=== PATIENT | male | born 1980 | race Caucasian/White ===

== ENCOUNTER 2018-12-13 16:33 | Emergency (ER) | payer OTHER, SELFPAY ==
--- NOTE | 2018-12-13 17:45 | RAD REPORT ---
EXAM DESCRIPTION: Xavier Schmidt (2 Views)12/13/2018 5:36 pm CLINICAL HISTORY: Cough COMPARISON: None FINDINGS: The lungs appear clear of acute infiltrate. The heart is normal size IMPRESSION: No acute abnormalities displayed
[2018-12-13] MEDS ORDERED: MORPHINE 4 MG/ML SYR ONE (18:21)
[2018-12-13] MEDS ORDERED: KETOROLAC 30 MG/ML INJ ONE (18:22)
[2018-12-13] MEDS ORDERED: ONDANSETRON 4 MG (ODT) TAB ONE (18:22)
--- NOTE | 2018-12-13 19:12 | RAD REPORT ---
EXAM DESCRIPTION: CT - Thorax Wo Con - 12/13/2018 6:53 pm CLINICAL HISTORY: Chest pain COMPARISON: Chest x-ray December 13, 2018 TECHNIQUE: Computed axial tomography of the chest was obtained. Contrast was not requested. All CT scans are performed using dose optimization technique as appropriate and may include automated exposure control or mA/KV adjustment according to patient size. FINDINGS: The evaluation of mediastinum, anam and vessels is limited secondary to lack of IV contras t administration. Nondisplaced fracture left fifth anterolateral rib Mild lingular opacity. . No pneumothorax No mediastinal hematoma A pleural effusion is not present. No pericardial effusion Gallstone 43 millimeter right thyroid substernal nodule is only partially included in the field of view IMPRESSION: Nondisplaced fracture left fifth anterolateral rib Mild lingular opacity may represent a contusion or inflammation 43 millimeter right thyroid substernal nodule. Nonemergent thyroid ultrasound recommended
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
[2018-12-13 21:53] VITALS: TEMP 98.2; O2SAT 99
[2018-12-13 21:56] VITALS: BP 120/82
== END 2018-12-13 19:51 | disposition home or self-care (01) ==
LOC: ER 16:33
DX: S22.32XA Fracture of one rib, left side, initial encounter for closed fracture (principal); W03.XXXA Other fall on same level due to collision with another person, initial encounter; Y93.89 Activity, other specified; Y92.832 Beach as the place of occurrence of the external cause; Z72.0 Tobacco use
CPT/HCPCS: 71046; 71250; 96372; 99284

== ENCOUNTER 2018-12-16 08:52 | Emergency (ER) | payer SELFPAY ==
--- OUTSIDE RECORDS SUMMARY | 2018-12-16 08:55 | XMS REPORT ---
:1980 [facility] Address [address] [place] [address] [address] [place] [address] Care Team Providers Name Role Phone Unavailable Unavailable Unavailable Payers Payer Name Policy Type Policy Number Effective Date Expiration Date Problems This patient has no known problems. Allergies, Adverse Reactions, Alerts Allergy Allergy Status Severity Reaction(s) Onset Inactive Treating Comments Name Type Date Date Clinician No Known DA Active U 2018-06 Allergies - 00:00:0 0 No Known DA Active U 2013-07 Allergies - 00:00:0 0 Medications This patient has no known medications. Results Test Description Test Time Test Comments Text Results Atomic Results Result Comments - [facility] 2018-07-21 19:52:00 Name: SANJUANA WELDON [facility] : 1980 Age/S: 38 / M [address] [place] [address] Unit #: [id number] Loc: [place] [address] Phys: Gaurav Blankenship MD Acct: [id number] Dis Date: Status: PRE ER PHONE #: [phone] Exam Date: 07/21/20181943 FAX #: [phone] Reason: Mass on right wrist EXAMS: CPT CODE: [id number] [facility] [id number] NONVASCULAR ULTRASOUND RIGHT UPPER EXTREMITY WITH ATTENTION TO THE WRIST. INDICATION: Lump lateral aspect of the right wrist for several years. Now the patient is experiencing intermittent numbness of the hand and wrist. COMPARISON: None. FINDINGS: There is a 2.2 x 1.2 x 1.7 cm rounded sharply defined cyst with internal debris at the site of the palpable lump radial side of the wrist. No internal vascularity on Doppler ultrasound images. This is in close proximity to the radial artery and appears separate from it. IMPRESSION: Cyst with internal debris lateral aspect of the wrist as above. END OF IMPRESSION WR1-H at 1951 Reported and signed by: Mariano Ramos M.D. CC: Gaurav Blankenship MD Technologist: Tamara Rondon RDMS(AB)(OB) Trnsdb Date/Time: 07/21/2018 (1951) KaleighRTB Orig Print D/T: S: 07/21/2018 (1955) Probe: PAGE 1 Signed Report
--- OUTSIDE RECORDS SUMMARY | 2018-12-16 08:55 | XMS REPORT | Summary of Care ---
:1980 Author Organization [facility] Address [address] [place] [id number] Care Team Providers Name Role Phone Pcp, Patient Does Not Have A Primary Care Provider Reason for Referral MRI/CAT Scan (STAT) Status Reason Specialty Diagnoses / Referred By Referred To Procedures Contact Contact New Request Diagnostic Diagnoses Vertigo Yeison Caputo, Radiology Procedures CT Head W/O Contrast [address] [id number] MRI/CAT Scan (STAT) Status Reason Specialty Diagnoses / Referred By Referred To Procedures Contact Contact New Request Diagnostic Diagnoses Vertigo Yeison Caputo, Radiology Procedures CT Head W/O Contrast [address] [address] Reason for Visit Reason Comments Weakness Dizziness Auth/Cert Status Reason Specialty Diagnoses / Referred By Referred To Procedures Contact Contact Emergency Medicine [facility] Emergency Dept [address] [place] [address] Encounter Details Date Type Department Care Team Description 10/27/2018 Emergency [facility]Emergency Yeison Caputo MD Chest pain, unspecified type (Primary Dx); Department [address] [place] [address] [place] [address] [place] [address] [place] [address] [phone] Allergies Active Allergy Reactions Severity Noted Date Comments Azithromycin Nausea and/or Vomiting 10/09/2016 documented as of this encounter (statuses as of 10/27/2018) Medications Medication Sig Dispensed Refills Start Date End Date Status bupropion HCl Take by 0 Active (WELLBUTRIN ORAL) mouth. escitalopram Take by 0 Active oxalate (LEXAPRO mouth. ORAL) meclizine 25 mg Take 1 tablet 15 tablet 0 10/27/2018 Active tabletIndications: by mouth Vertigo every 6 (six) hours as needed for Dizziness. meclizine 25 mg Take 1 tablet 20 tablet 0 08/27/2018 10/27/2018 Discontinued tabletIndications: by mouth Vertigo every 6 (six) hours. meclizine 25 mg Take 1 tablet 15 tablet 0 10/27/2018 10/27/2018 Discontinued tabletIndications: by mouth Vertigo every 6 (six) hours as needed for Dizziness. meclizine 25 mg Take 1 tablet 15 tablet 0 10/27/2018 10/27/2018 Discontinued tabletIndications: by mouth Vertigo every 6 (six) hours as needed for Dizziness. documented as of this encounter (statuses as of 10/27/2018) Active Problems No known active problemsdocumented as of this encounter (statuses as of 2018) Social History Tobacco Use Types Packs/Day Years Used Date Never Assessed Sex Assigned at Date Recorded Not on file Job Start Date Occupation Industry Not on file Not on file Not on file Travel History Travel Start Travel End No recent travel history available. documented as of this encounter Last Filed Vital Signs Vital Sign Reading Time Taken Comments Blood Pressure 112/54 10/27/2018 8:10 PM CDT Pulse 61 10/27/2018 8:10 PM CDT Temperature 36.8 C (98.2 F) 10/27/2018 7:09 PM CDT Respiratory Rate 15 10/27/2018 8:10 PM CDT Oxygen Saturation 95% 10/27/2018 8:10 PM CDT Inhaled Oxygen Concentration - - Weight 154.2 kg (340 lb) 10/27/2018 5:31 PM CDT Height 188 cm (6' 2") 10/27/2018 5:31 PM CDT Body Mass Index 43.65 10/27/2018 5:31 PM CDT documented in this encounter Discharge Instructions AttachmentsThe following attachments cannot be sent through Care Everywhere.Vertigo, Unspecified (Divehi)Chest Pain, Noncardiac (Divehi) documented in this encounter Plan of Treatment Health Maintenance Due Date Last Done Comments VARICELLA VACCINES (1 of 2 - 13+ 1995 2-dose series) DTaP,Tdap,and Td Vaccines (1 - 2001 Tdap) INFLUENZA VACCINE 11/30/2018 PNEUMOCOCCAL 0-64 YEARS COMBINED Aged Out No longer eligible based on SERIES patient's age to complete this topic documented as of this encounter Procedures Procedure Name Priority Date/Time Associated Diagnosis Comments CT HEAD WO CONTRAST STAT 10/27/2018 6:08 Vertigo Results for this PM CDT procedure are in the results section. CBC WITH DIFFERENTIAL STAT 10/27/2018 5:32 Chest pain, Results for this PM CDT unspecified type procedure are in the results section. EXTRA TUBE LT. BLUE STAT 10/27/2018 5:32 PM CDT CBC WITH DIFF Routine 10/27/2018 5:32 Chest pain, Results for this PM CDT unspecified type procedure are in the results section. BASIC METABOLIC PANEL STAT 10/27/2018 5:32 Chest pain, Results for this (NA, K, CL, CO2, PM CDT unspecified type procedure are in GLUCOSE, BUN, the results CREATININE, CA) section. TROPONIN I STAT 10/27/2018 5:32 Chest pain, Results for this PM CDT unspecified type procedure are in the results section. EKG-12 LEAD STAT 10/27/2018 5:31 PM CDT documented in this encounter Results CT Head W/O Contrast (10/27/2018 6:08 PM CDT) Specimen Impressions Performed At Impression: PACS/VR/DOSE No acute intracranial abnormalities. RL: [address] scan was performed according to the ALARA (as low as reasonably achievable) principal. Narrative Performed At CT of the brain without IV contrast PACS/VR/DOSE Technique: Axial scanning of the brain was performed without IV contrast. Indication: Dizziness Comparison: None Ordering clinician: YEISON CAPUTO Discussion: There is no intracranial hemorrhage, extra-axial fluid collections, midline shift or hydrocephalus. There is no loss of the jarvis-white matter differentiation. No mass lesion is identified. The parenchymal volume is within normal limits for the patient's age. Procedure Note [facility], Radiant Results Inft User - 10/27/2018 6:[address] of the brain without IV contrast Technique: Axial scanning of the brain was performed without IV contrast. Indication: Dizziness Comparison: None Ordering clinician: YEISON CAPUTO Discussion: There is no intracranial hemorrhage, extra-axial fluid collections, midline shift or hydrocephalus. There is no loss of the jarvis-white matter differentiation. No mass lesion is identified. The parenchymal volume is within normal limits for the patient's age. IMPRESSION Impression: No acute intracranial abnormalities. RL: [address] scan was performed according to the ALARA (as low as reasonably achievable) principal. Performing Organization Address City/State/Zipcode Phone Number PACS/VR/DOSE EXTRA TUBE LT. BLUE (10/27/2018 5:32 PM CDT) Specimen Blood Performing Organization Address City/State/Zipcode Phone Number [facility] CLIA: [id number], [address] [place] [address] [facility] [address] CBC WITH DIFFERENTIAL (10/27/2018 5:32 PM CDT) WBC 10.78 (H) 4.20 - 10.70 [facility] 10*3/L [facility] RBC 5.08 4.26 - 5.52 [facility] 10*6/L [facility] HGB 15.4 12.2 - 16.4 [facility] g/dL [facility] HCT 45.4 38.4 - 49.3 % [facility] MCV 89.4 81.7 - 95.6 fL [facility] MCH 30.3 26.1 - 32.7 pg [facility] MCHC 33.9 31.2 - 35.0 [facility] g/dL [facility] RDW-SD 41.8 38.5 - 51.6 fL [facility] RDW-CV 12.8 12.1 - 15.4 % [facility] PLT 290 150 - 328 [facility] 10*3/L [facility] MPV 9.5 (L) 9.8 - 13.0 fL [facility] NRBC/100 WBC 0.0 0.0 - 10.0 /100 [facility] WBCs [facility] NRBC x10^3 <0.01 10*3/L [facility] GRAN MAT (NEUT) % 64.0 % [facility] IMM GRAN % 0.80 % [facility] LYMPH % 24.8 % [facility] MONO % 7.8 % [facility] EOS % 2.1 % [facility] BASO % 0.5 % [facility] GRAN MAT x10^3(ANC) 6.90 1.99 - 6.95 [facility] 10*3/uL [facility] IMM GRAN x10^3 0.09 (H) 0.00 - 0.06 [facility] 10*3/uL [facility] LYMPH x10^3 2.67 1.09 - 3.23 [facility] 10*3/uL [facility] MONO x10^3 0.84 0.36 - 1.02 [facility] 10*3/uL [facility] EOS x10^3 0.23 0.06 - 0.53 [facility] 10*3/uL [facility] BASO x10^3 0.05 0.01 - 0.09 [facility] 10*3/uL [facility] Specimen Blood - ARM, LEFT Performing Organization Address City/State/Zipcode Phone Number [facility] CLIA: [id number], [address] [place], [place] [id number] [facility] [address] Troponin I (10/27/2018 5:32 PM CDT) TROPONIN I 0.000 <=0.034 ng/mL [facility] Specimen Blood - ARM, LEFT Narrative Performed At Equal or Less than 0.034 ng/ml---Normal [facility] Note: Cardiac troponin begins to rise 3-4 CAMPUS hours after the onset of ischemia. Repeat in 4-6 hours if the sample was drawn within 3-4 hours of the onset of the symptom and found normal. Between 0.035 and 0.120 ng/mL--- Borderline. Questionable myocardial injury or necrosis Note: Serial measurement may be necessary to confirm or exclude the diagnosis of myocardial injury or necrosis; Clinical correlation (symptoms, EKGs, imaging studies, and others) required; Repeat in 4-6 hours if clinically indicated. Equal or Higher than 0.121 ng/mL---Abnormal. Myocardial Injury or Necrosis Likely Biotin has been reported to cause a negative bias, interpret results relative to patient's use of biotin. Performing Organization Address City/State/Zipcode Phone Number [facility] CLIA: [id number], [address] [place] [address] [facility] [address] Basic Metabolic Panel (NA, K, CL, CO2, GLUCOSE, BUN, CREATININE, CA) (2018 5:32 PM CDT) NA 140 135 - 145 mmol/L [facility] K 4.2 3.5 - 5.0 mmol/L [facility] CL 104 98 - 108 mmol/L [facility] CO2 TOTAL 29 23 - 31 mmol/L [facility] AGAP 7 2 - 16 [facility] BUN 7 7 - 23 mg/dL [facility] GLUCOSE 107 70 - 110 mg/dL [facility] CREATININE 0.66 0.60 - 1.25 [facility] mg/dL [facility] CALCIUM 9.2 8.6 - 10.6 mg/dL [facility] eGFR Calculation 136.6 mL/min/1.73m2 [facility] (Non-) [facility] eGFR Calculation 165.5 mL/min/1.73m2 [facility] () [facility] Specimen Blood - ARM, LEFT Narrative Performed At Association of Glomerular Filtration Rate [facility] (GFR) and Staging of Kidney Disease* [place] + + --+ + | GFR (mL/min/1.73 m2)| With Kidney Damage|Without Kidney Damage + + --+ + |>90 |Stage one| Normal + + --+ + |60-89| Stage two| Decreased GFR + + --+ + |30-59| Stage three| Stage three + + --+ + |15-29| Stage four | Stage four + + --+ + |<15 (or dialysis)|Stage five | Stage five + + --+ + *Each stage assumes the associated GFR level has been in effect for at least three months.Stages 1 to 5, with or without kidney disease, indicate chronic kidney disease. Notes: Determination of stages one and two (with eGFR >59mL/min/1.73 m2) requires estimation of kidney damage for at least three months as defined by structural or functional abnormalities of the kidney, manifested by either: Pathological abnormalities or Markers of kidney damage (including abnormalities in the composition of the blood or urine or abnormalities in imaging tests). Performing Organization Address City/State/Zipcode Phone Number [facility] CLIA: [id number], [address] [place] [address] [facility] documented in this encounter Visit Diagnoses Diagnosis Chest pain, unspecified type - Primary Vertigo Dizziness and giddiness documented in this encounter
[2018-12-16] MEDS ORDERED: KETOROLAC 30 MG/ML INJ ONE (09:28)
--- NOTE | 2018-12-16 10:53 | ER ---
Nurse's Notes [facility] Name: Steven Nguyen Age: 38 yrs Sex: Male : 1980 Arrival Date: 12/16/2018 Time: 08:54 Bed 17 [facility] MD: Unknown, Unknown Diagnosis: Intercostal pain Presentation: 12/16 09:05 Presenting complaint: Seen in ED last weekend for broken rib, feels like pain is hb getting worse and having difficulty breathing. Transition of care: patient was not received from another setting of care. Onset of symptoms was December 16, 2018. Risk Assessment: Do you want to hurt yourself or someone else? Patient reports no desire to harm self or others. Initial Sepsis Screen: Does the patient meet any 2 criteria? No. Patient's initial sepsis screen is negative. Does the patient have a suspected source of infection? No. Patient's initial sepsis screen is negative. Care prior to arrival: None. 09:05 Method Of Arrival: Ambulatory hb 09:05 Acuity: JANNA 3 hb Triage Assessment: 09:07 General: Appears in no apparent distress. comfortable, obese, Behavior is cooperative, bp appropriate for age, anxious. Pain: Complains of pain in chest. EENT: No deficits noted. Neuro: No deficits noted. Cardiovascular: No deficits noted. Respiratory: No deficits noted. GI: No signs and/or symptoms were reported involving the gastrointestinal system. : No signs and/or symptoms were reported regarding the genitourinary system. Derm: No deficits noted. Musculoskeletal: No deficits noted. Historical: - Allergies: 09:08 Erythromycin; hb - PMHx: 09:08 Asthma; hb - PSHx: 09:08 Hernia repair; hb - Immunization history:: Adult Immunizations up to date. - Social history:: Smoking status: Patient uses tobacco products, smokes one-half pack cigarettes per day. - Ebola Screening: : No symptoms or risks identified at this time. Screenin:34 Abuse screen: Denies threats or abuse. Denies injuries from another. Nutritional bp screening: No deficits noted. Tuberculosis screening: No symptoms or risk factors identified. Fall Risk None identified. Assessment: 09:33 General: SEE TRIAGE NOTE. bp 11:23 Reassessment: PT D/C HOME AMBULATORY WITH FAMILY, DX WITH COSTOCHONDRITIS. VS STABLE. bp Vital Signs: 09:06 BP 129 / 64; Pulse 62; Resp 16; Temp 98.2; Pulse Ox 97% on R/A; Weight 154.22 kg; hb Height 6 ft. 2 in. (187.96 cm); Pain 10/10; 09:06 Body Mass Index 43.65 (154.22 kg, 187.96 cm) hb ED Course: 08:54 Patient arrived in ED. ag5 08:56 Unknown, Unknown is Private Physician. ag5 09:06 Triage completed. hb 09:06 Arm band placed on. hb 09:14 Che Shelley FNP-C is [facility]. snw 09:14 Sean Bhatia MD is Attending Physician. snw 09:15 Ozzy Ramires MD is Attending Physician. snw 09:32 Damon Don, RN is Primary Nurse. bp 09:34 Patient has correct armband on for positive identification. Bed in low position. Call bp light in reach. Side rails up X2. Adult w/ patient. 10:47 Chest Pa And Lat (2 Views) XRAY In Process Unspecified. EDMS 11:24 No provider procedures requiring assistance completed. Patient did not have IV access bp during this emergency room visit. Administered Medications: 09:30 Drug: TORadol 30 mg Route: IM; Site: right deltoid; bp 11:23 Follow up: Response: Pain is decreased bp Outcome: 10:52 Discharge ordered by . snw 11:25 Condition: stable bp 11:25 Instructed on the need for admit. 11:26 Discharged to home ambulatory, with family. bp 11:27 Patient left the ED. bp Signatures: Dispatcher [employer] EDMS Che Shelley FNP-C MEDICAL PRACTICE ASSISTANT-Csnw Renetta Connor, RN RN Damon Toure, RN RN Bruce Richards ag5
--- NOTE | 2018-12-16 10:54 | EDPHYS ---
Physician Documentation [facility] Name: Steven Nguyen Age: 38 yrs Sex: Male : 1980 Arrival Date: 12/16/2018 Time: 08:54 Bed 17 Private MD: Unknown, Unknown ED Physician Ozzy Ramires HPI: 12/16 09:39 This 38 yrs old Male presents to ER via Ambulatory with complaints of Rib snw Pain. 09:39 Onset: The symptoms/episode began/occurred suddenly, 1 week(s) ago, and became worse snw yesterday, and became persistent. Associated signs and symptoms: Pertinent positives: The patient does not have any pertinent positive signs or symptoms associated with pediatric illness. The patient has not experienced similar symptoms in the past. The patient has been recently seen by a physician: 1 week(s) ago, with similar presenting complaints, and apparently given a diagnosis of rib fracture. Historical: - Allergies: 09:08 Erythromycin; hb - PMHx: 09:08 Asthma; hb - PSHx: 09:08 Hernia repair; hb - Immunization history:: Adult Immunizations up to date. - Social history:: Smoking status: Patient uses tobacco products, smokes one-half pack cigarettes per day. - Ebola Screening: : No symptoms or risks identified at this time. ROS: 09:31 Constitutional: Negative for fever, chills, and weight loss, Eyes: Negative for injury, snw pain, redness, and discharge, ENT: Negative for injury, pain, and discharge, Neck: Negative for injury, pain, and swelling, Cardiovascular: Negative for chest pain, palpitations, and edema, Abdomen/GI: Negative for abdominal pain, nausea, vomiting, diarrhea, and constipation, Back: Negative for injury and pain, : Negative for injury, bleeding, discharge, and swelling, MS/Extremity: Negative for injury and deformity, Skin: Negative for injury, rash, and discoloration, Neuro: Negative for headache, weakness, numbness, tingling, and seizure, Psych: Negative for depression, anxiety, suicide ideation, homicidal ideation, and hallucinations. 09:31 Respiratory: Positive for pleurisy, of the left lateral chest wall. Exam: 09:29 Constitutional: This is a well developed, obese patient who is awake, alert, and in no snw acute distress. Head/Face: Normocephalic, atraumatic. Eyes: Pupils equal round and reactive to light, extra-ocular motions intact. Lids and lashes normal. Conjunctiva and sclera are non-icteric and not injected. Cornea within normal limits. Periorbital areas with no swelling, redness, or edema. ENT: Nares patent. No nasal discharge, no septal abnormalities noted. Tympanic membranes are normal and external auditory canals are clear. Oropharynx with no redness, swelling, or masses, exudates, or evidence of obstruction, uvula midline. Mucous membranes moist. Neck: Trachea midline, no thyromegaly or masses palpated, and no cervical lymphadenopathy. Supple, full range of motion without nuchal rigidity, or vertebral point tenderness. No Meningismus. Chest/axilla: Normal chest wall appearance and motion. Nontender with no deformity. No lesions are appreciated. Cardiovascular: Regular rate and rhythm with a normal S1 and S2. No gallops, murmurs, or rubs. Normal PMI, no JVD. No pulse deficits. Abdomen/GI: Soft, non-tender, with normal bowel sounds. No distension or tympany. No guarding or rebound. No evidence of tenderness throughout. Back: No spinal tenderness. No costovertebral tenderness. Full range of motion. Skin: Warm, dry with normal turgor. Normal color with no rashes, no lesions, and no evidence of cellulitis. MS/ Extremity: Pulses equal, no cyanosis. Neurovascular intact. Full, normal range of motion. Neuro: Awake and alert, GCS 15, oriented to person, place, time, and situation. Cranial nerves II-XII grossly intact. Motor strength 5/5 in all extremities. Sensory grossly intact. Cerebellar exam normal. Normal gait. Psych: Awake, alert, with orientation to person, place and time. Behavior, mood, and affect are within normal limits. 09:29 Respiratory: the patient does not display signs of respiratory distress, Respirations: shallow respirations, splinting, that is moderate, tenderness to left lateral chest wall, Breath sounds: are clear throughout. Vital Signs: 09:06 BP 129 / 64; Pulse 62; Resp 16; Temp 98.2; Pulse Ox 97% on R/A; Weight 154.22 kg; hb Height 6 ft. 2 in. (187.96 cm); Pain 10/10; 09:06 Body Mass Index 43.65 (154.22 kg, 187.96 cm) hb MDM: 09:20 Patient medically screened. snw 10:53 Data reviewed: vital signs, nurses notes. Data interpreted: Pulse oximetry: on room air snw is 97 %. Interpretation: normal. Counseling: I had a detailed discussion with the patient and/or guardian regarding: the historical points, exam findings, and any diagnostic results supporting the discharge/admit diagnosis, radiology results, the need for outpatient follow up, to return to the emergency department if symptoms worsen or persist or if there are any questions or concerns that arise at home. Special discussion: Based on the history and exam findings, there is no indication for further emergent testing or inpatient evaluation. I discussed with the patient/guardian the need to see the primary care provider for further evaluation of the symptoms. 12/16 09:23 Order name: Chest Pa And Lat (2 Views) XRAY snw Administered Medications: 09:30 Drug: TORadol 30 mg Route: IM; Site: right deltoid; bp 11:23 Follow up: Response: Pain is decreased bp Disposition: 16:41 Co-signature as Attending Physician, Ozzy Ramires MD I agree with the assessment and vinayak plan of care. Disposition: 12/16/18 10:52 Discharged to Home. Impression: Intercostal pain. - Condition is Stable. - Discharge Instructions: Chest Wall Pain, Costochondritis. - Prescriptions for Diclofenac Sodium 75 mg Oral Tablet Sustained Release - take 1 tablet by ORAL route 2 times per day; 30 tablet. Albuterol Sulfate 90 mcg/actuation - inhale 1-2 puff by INHALATION route every 4-6 hours; 1 Inhaler. - Work release form, Medication Reconciliation Form, Thank You Letter, Antibiotic Education, Prescription Opioid Use form. - Follow up: Emergency Department; When: As needed; Reason: Trouble breathing, Worsening of condition. Follow up: Private Physician; When: 2 - 3 days; Reason: Recheck today's complaints, Continuance of care, Re-evaluation by your physician. Signatures: Dispatcher [employer] Ozzy Ayon MD MD cha Therrien, Shelly, [employer] END FINDER-C [employer] END FINDER-Csnw Renetta Connor, RN RN Damon Toure RN RN bp Corrections: (The following items were deleted from the chart) 11:27 10:52 12/16/2018 10:52 Discharged to Home. Impression: Intercostal pain. Condition is bp Stable. Forms are Medication Reconciliation Form, Thank You Letter, Antibiotic Education, Prescription Opioid Use. Follow up: Emergency Department; When: As needed; Reason: Trouble breathing, Worsening of condition. Follow up: Private Physician; When: 2 - 3 days; Reason: Recheck today's complaints, Continuance of care, Re-evaluation by your physician. snw
--- NOTE | 2018-12-16 11:25 | RAD REPORT ---
EXAM DESCRIPTION: RAD - Chest Pa And Lat (2 Views) - 12/16/2018 10:46 am CLINICAL HISTORY: CHEST PAIN Chest pain. COMPARISON: Chest Pa And Lat (2 Views) dated 12/13/2018; Thorax Wo Con dated 12/13/2018 FINDINGS: The lungs are clear. Expiration view shows no evidence of a measurable pneumothorax. The h eart is normal in size. The patient's known left rib fracture not well seen by plain radiograph. IMPRESSION: No acute abnormality detected.
[2018-12-16 12:30] VITALS: BP 129/64; TEMP 98.2; O2SAT 97
== END 2018-12-16 11:27 | disposition home or self-care (01) ==
LOC: ER 08:52
DX: R07.82 Intercostal pain (principal); F17.210 Nicotine dependence, cigarettes, uncomplicated; Z88.3 Allergy status to other anti-infective agents
CPT/HCPCS: 71046; 96372; 99283

== ENCOUNTER 2024-01-31 21:29 | Emergency (ER) | payer OTHER ==
[2024-01-31] MEDS ORDERED: ONDANSETRON 4 MG/2 ML VIAL ONE (21:46)
[2024-01-31] MEDS ORDERED: dexAMETHasone 10 MG/ML VIAL ONE (21:46)
[2024-01-31] MEDS ORDERED: KETOROLAC 30 MG/ML INJ ONE (21:47)
[2024-01-31] MEDS ORDERED: FENTANYL CITR 100 MCG/2 ML ONE (21:47)
[2024-01-31] MEDS ORDERED: NA CHLORIDE 0.9% 1,000 ML ONE (21:49)
[2024-01-31] MEDS ORDERED: DIAZEPAM 5 MG TABLET ONE (21:49)
[2024-01-31 22:42] LABS: Anion Gap 6.5 mEq/L (5.0-15.0); Potassium 3.5 mEq/L (3.5-5.1)
[2024-01-31 22:43] LABS: Absolute Basophils 0.1 K/uL (0-0.5); Absolute Eosinophils 0.3 K/uL (0-0.5); Absolute Lymphocytes (CBC) 3.3 K/uL (0.7-4.9); Absolute Monocytes 1.1 K/uL (0.1-1.3); Absolute Neutrophil 6.7 K/uL (1.8-8.0); Basophils % 0.6 % (0-1.3); Eosinophils % 2.6 % (0-4.4); Hematocrit 41.6 % (39.6-49.0); Hemoglobin 14.4 g/dL (13.6-17.9); Lymphocytes % 28.7 % (15.3-44.8); MCH 30.6 pg (27.0-35.0); MCHC 34.6 g/dL (32.0-36.0); MCV 88.5 fL (80-100); MPV 8.1 fL (7.6-11.3); Monocytes % 9.4 % (3.3-12.3); Neutrophils % 58.7 % (41.7-73.7); Nucleated Red Blood Cells % 0.1 % (0-0); Platelets 281 thou/uL (152-406); Red Cell Distribution Width 13.5 % (12.1-15.2)
--- NOTE | 2024-01-31 23:11 | RAD REPORT ---
EXAMINATION: CT HEAD WITHOUT CONTRAST CT CERVICAL SPINE WITHOUT CONTRAST CLINICAL INDICATION: Male, 43 years old. Pain;Trauma TECHNIQUE: Axial CT images from the skull base to the vertex without intravenous contrast. Axial CT i mages through the cervical spine were obtained without intravenous contrast. Sagittal and coronal reformatted images were created from the data set. Coronal and sagittal reformatted images were creat ed from the data set. One or more of the following dose reduction techniques were used: Automated exposure control, adjustment of the mA and/or kV according to patient size, and/or iterative reconstr uction. Unless otherwise specified, incidental findings do not require dedicated imaging follow-up. [id number]. COMPARISON: No prior exam. FINDINGS: Head: INTRACRANIAL: No acute intracranial hemorrhage. No hydrocephalus. No mass effect or midline shift. No significant white matter disease. VASCULATURE: No visualized abnormalities in the arteries or dural venous sinuses. SCALP/SKULL: No significant soft tissue or osseous abnormalities. SINUSES: The visualized paranasal sinuses and mastoid air cells are predominantly clear. Cervical spine: ALIGNMENT: The cervical spine has normal alignment without scoliosis or spondylolisthesis. BONE: Vertebral body heights are maintained. No aggressive osseous lesions. DEGENERATIVE CHANGES: None significant. SOFT TISSUE: 4 cm right thyroid nodule. This has been present since at least 12/13/2018 and is presuma marry benign. IMPRESSION: No acute intracranial abnormality. No acute fracture or traumatic malalignment of the cervical spine.
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
[2024-02-01 00:30] VITALS: TEMP 97.9
[2024-02-01 00:32] VITALS: BP 124/57; O2SAT 94
== END 2024-01-31 23:46 | disposition home or self-care (01) ==
LOC: ER 21:29
DX: M62.830 Muscle spasm of back (principal); R20.2 Paresthesia of skin; E66.9 Obesity, unspecified; V49.9XXA Car occupant (driver) (passenger) injured in unspecified traffic accident, initial encounter
CPT/HCPCS: 96361; 85025; 80048; 36415; 86900; 86850; 86901; 70450; 72125; 71260; 74177; 96375; 96374; 99285; Q9967; J3010; J1100; J2405; J7030